=== PATIENT | female | born 1995 | race Hispanic/Latino ===

== ENCOUNTER → 2018-08-14 08:39 | Outpatient (CLI) | payer BC, SELFPAY ==
--- NOTE | 2018-08-14 | DI.MRI.S_ITS ---
PROCEDURE: MR KNEE LT WO CON INDICATIONS: Unspecified dislocation of left knee. TECHNIQUE: Noncontrast sagittal PD fast spin echo and T2 fast spin echo with fat saturation, sagittal 3-D FLASH with fat saturation; coronal T1 spin echo and PD fast spin echo with fat saturation, and axial PD fast spin echo with fat saturation through the knee. COMPARISON: [facility], MR, KNEE WITHOUT CONTRAST, 10/28/2016, 13:06. FINDINGS: Image quality: Excellent. Menisci: The medial and lateral menisci demonstrate normal morphology and internal signal. The meniscal root ligaments appear intact. Cruciate ligaments: The anterior cruciate ligament is torn at the mid aspect. The posterior cruciate ligament appears intact. Medial structures: The medial collateral ligament appears intact. The posterior oblique ligament, semimembranosus tendon insertions, oblique popliteal ligament, and meniscocapsular junction appear intact. Visualized portions of the pes anserinus tendons appear normal. No abnormal bursal fluid. Lateral structures: The lateral collateral ligament, long and short heads of the biceps femoris tendon appear intact. There is slight thickening and increased signal within the proximal lateral collateral ligament at the femoral attachment compatible with mild sprain. The popliteus tendon appears normal; the popliteofibular ligament appears intact. The posterosuperior and anteroinferior popliteomeniscal fascicles appear intact. The arcuate and fabellofibular ligaments appear intact, on either side of the lateral inferior geniculate artery. Iliotibial band appears normal. Anterior structures: The quadriceps and patellar tendons appear intact. Patellar alignment is normal. No femoral trochlear dysplasia or ventral trochlear prominence. No edema in the infrapatellar fat pad. Bones and cartilage: Osseous contusions involving the lateral femoral condyle, lateral tibial plateau and medial tibial plateau noted. The cartilage of the medial and lateral femorotibial compartments, as well as the patellofemoral compartment, appears normal in thickness. Joint space: There is small joint effusion. No Barth's cyst. Normal appearing synovial plicae are incidentally noted. IMPRESSION: 1. Acute anterior cruciate ligament tear. 2. Osseous contusions involving the lateral femoral condyle, lateral tibial plateau and medial tibial plateau. 3. Mild lateral collateral ligament sprain. 4. Small joint effusion. Dictated by: Kristen Cadet MD, PhD on 08/14/2018 at 12:27 Approved by: Kristen Cadet MD, PhD on 08/16/2018 at 11:30
== END ==
PROVIDERS: Visit Provider Nurse Practitioner Family
DX: S83.512A Sprain of anterior cruciate ligament of left knee, initial encounter (principal); S80.02XA Contusion of left knee, initial encounter; S83.422A Sprain of lateral collateral ligament of left knee, initial encounter; M25.462 Effusion, left knee
CPT/HCPCS: 73721

== ENCOUNTER → 2019-01-15 08:33 | Outpatient (CLI) | payer BC, SELFPAY ==
--- NOTE | 2019-01-15 | DI.US.S_ITS ---
PROCEDURE: US PELVIC COMPLETE INDICATIONS: PELVIC PAIN TECHNIQUE: Real-time scanning was performed of the pelvic organs, with image documentation. Additional endovaginal scanning was necessary due to incomplete visualization of the adnexal and endometrial structures by transabdominal scanning. COMPARISON: None. FINDINGS: Transabdominal scanning: Limited scanning through the kidneys shows no hydronephrosis. No pathologic free abdominal or pelvic fluid. Endovaginal scanning: Uterus: Uterus is normal in size at 5 x 2.8 x 3.8 cm. The endometrium measures 3 mm in combined thickness. No endometrial mass or fluid is seen. No discrete fibroid. Ovaries: Right ovary measures 2.7 x 2 x 1.9 cm in size. Left ovary measures 2.5 x 1.5 x 1.9 cm in size. Subcentimeter follicles are noted in bilateral ovaries. No gross solid right ovarian lesion. Normal blood flow is seen in bilateral ovaries. IMPRESSION: Unremarkable ultrasound examination of pelvis. No finding to explain patient's symptoms. Dictated by: Colin Mcgee M.D. on 01/15/2019 at 10:28 Approved by: Colin Mcgee M.D. on 01/15/2019 at 10:38
== END ==
PROVIDERS: PCP Family Medicine; Visit Provider Nurse Practitioner Family
DX: R10.2 Pelvic and perineal pain (principal)
CPT/HCPCS: 76830; 76856